=== PATIENT | male | born 1960 | race Caucasian/White ===

== ENCOUNTER → 2021-02-26 | Outpatient (CLI) | payer BC ==
--- NOTE | 2021-02-26 07:49 | REP ---
INDICATION: [id number] ABN LIVER STUDIES COMPARISON: None. TECHNIQUE: Real time voss scale ultrasound examination using curved array transducer. FINDINGS: Liver is diffusely hyperechoic suggesting fatty infiltration without focal hepatic lesion identified. Pancreas is incompletely evaluated due to interposed bowel gas. The gallbladder is normal and without gallstones, wall thickening, or pericholecystic fluid. No biliary ductal dilatation is appreciated and the common bile duct measures 4.0 mm diameter. Right kidney is normal in reniform shape and includes a 2.5 cm round hyperechoic structure within the midpole suggesting angiolipoma. Kidney measures 9.4 x 6.6 x 4.3 cm without hydronephrosis, nephrolithiasis or cystic lesion. No ascites in the visualized right upper quadrant. IMPRESSION: 1. Hepatosteatosis without focal hepatic lesion identified. 2. 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 <Electronically signed by River Plasencia > 02/26/21 [id number]
== END ==
LOC: M RAD 06:53
PROVIDERS: ATTEND Nurse Practitioner Adult Health
DX: R94.5 Abnormal results of liver function studies (principal); R12 Heartburn; F10.10 Alcohol abuse, uncomplicated; Z85.038 Personal history of other malignant neoplasm of large intestine; K76.89 Other specified diseases of liver; N28.89 Other specified disorders of kidney and ureter